=== PATIENT | male | born 1985 | race Caucasian/White ===

== ENCOUNTER 2016-09-10 07:54 | Emergency (ER) | payer SELFPAY ==
[2016-09-10 08:06] VITALS: BP 130/76
--- NOTE | 2016-09-10 08:24 | ERNOTE ---
Date of Service: 09/10/16 Time Seen by Provider: 09/10/16 08:07 Stated Complaint: COLD Presenting Symptoms:: cough Source: patient Immunizations: IMMUNIZATION HX Immunizations Up to Date Yes History of Influenza Vaccine Yes Hx Pneumococcal Vaccination No Allergies/Adverse Reactions: Allergies No Known Allergies Allergy (Verified 09/10/16 08:06) Home Medications: HOME MEDICATIONS ALPRAZolam [Xanax] 1 mg PO TID PRN 08/07/15 [Last Taken Unknown] Amitriptyline HCl 150 mg PO HS 08/07/15 [Last Taken Unknown] HYDROcodone/ACETAMINOPHEN [[place] 5-325] 1 - 2 tab PO QID PRN #40 tab 09/10/16 [ Last Taken Unknown] Levofloxacin [Levaquin] 500 mg PO DAILY #14 tab 09/10/16 [Last Taken Unknown] Omeprazole 40 mg PO DAILY 09/10/16 [Last Taken Unknown] - History of Present Ilness Narrative: Ten days ago he developed rhinorrhea and a cough, which have steadily worsened. He was given Amoxicillin, prednisone and tessalon, none of which helped. Now he is miserable. No fever. Coughing hurts his chest. He can't sleep because of the cough. Timing: getting worse Severity: moderate, severe Frequency/Possible Cause: Reports: no prior episodes Modifying Factors - Improves: Reports: nothing Modifying Factors - Worsens: Reports: activity, coughing Associated Symptoms: Reports: chest pain/soreness, cough, nasal congestion, nasal drainage, earache, muscle aches Prior Treatment: Reports: recently seen, treated by physician Review of Systems - Review of Systems Constitutional: Present: chills, diaphoresis, fatigue, malaise EYE: Present: no symptoms reported ENT: Present: ear pain, nose congestion, nasal drainage Respiratory: Present: See HPI Cardiology: Present: no symptoms reported Gastrointestinal/Abdominal: Present: no symptoms reported Genitourinary: Present: no symptoms reported Musculoskeletal: Present: no symptoms reported Skin: Present: no symptoms reported Neurological: Present: no symptoms reported Endocrine: Present: no symptoms reported Hematologic/Lymphatic: Present: no symptoms reported Psych: Present: no symptoms reported All Other Systems: All systems neg except as marked - Patient's Past Medical History Patient History - Medical: Anxiety, Depression, GERD Patient History - Cardiac/Respiratory: No pertinent hx Patient History - Cancer: No Hx of Cancer Patient History - Surgical Procedures: Appendectomy, T & A Patient History - Other: None - Family History mom Family History - Medical: No pertinent hx dad Family History - Medical: No pertinent hx Family History - Cardiac/Respiratory: No pertinent hx - Social History Living Situations: home Psych History: Hx of Anxiety, Hx of Depression Smoking Status: Former smoker Have you smoked in the past 12 months: No Alcohol Use: occasionally - Immunizations Immunizations Up to Date: Yes Hx Pneumococcal Vaccination: No History of Influenza Vaccine: Yes Physical Exam - Physical Exam General Appearance: Present: wd/wn, alert, no apparent distress Eye Exam: Normal inspection: bilateral, PERRL: bilateral, EOMI: bilateral Ears, Nose, Throat: Present: normal ENT inspection, abnormal TM (R) - tm's retracted, abnormal TM (L), nasal congestion, sinus pain/drainage, pharyngeal erythema Neck: Present: normal inspection, lymphadenopathy (R), lymphadenopathy (L) Respiratory: Present: no respiratory distress, normal breath sounds Cardiovascular/Chest: Present: regular rate, rhythm, no murmur Gastrointestinal/Abdominal: Present: normal bowel sounds, nontender, nondistended, soft, no organomegaly Back Exam: Present: normal inspection Extremity Exam: Present: normal inspection, no edema Neurological Exam: Present: alert, oriented, normal mood/affect Skin Exam: Present: normal color, warm/dry ED Progress - Vital Signs Patient's Vital Signs:: I have reviewed the patient's vital signs. Vital Signs: Vital Signs 09/10/16 08:04 Temperature 36.3 C L Pulse Rate 88 Respiratory 16 Rate Blood Pressure 130/76 O2 Sat by Pulse 99 Oximetry - Progress/Reassessment Chief Complaint: Cough Departure - Departure Clinical Impression: Bronchitis Disposition: Home self-care Condition: Good Instructions: Acute Bronchitis, [id number] Additional Instructions: See your doctor if you worsen. See your doctor in 2 weeks regardless. Prescriptions: HYDROcodone/ACETAMINOPHEN [[place] 5-325] 1 - 2 tab PO QID PRN #40 tab PRN Reason: Cough Levofloxacin [Levaquin] 500 mg PO DAILY #14 tab
== END 2016-09-10 08:49 | disposition home or self-care (01) ==
LOC: ER 07:54
DX: J40 Bronchitis, not specified as acute or chronic (principal); Z87.891 Personal history of nicotine dependence; K21.9 Gastro-esophageal reflux disease without esophagitis; F41.9 Anxiety disorder, unspecified